=== PATIENT | male | born 1990 | race Asian ===

== ENCOUNTER 2018-10-06 09:53 | Emergency (ER) | payer SELFPAY ==
[2018-10-06] MEDS ORDERED: DEXAMETHASONE 4 MG TAB PO ONE (10:32)
--- NOTE | 2018-10-06 10:33 | EDPHY ---
H & P Stated Complaint: ST for 5 days Time Seen by Provider: 10/06/18 10:00 HPI/ROS: CHIEF COMPLAINT: Sore throat HISTORY OF PRESENT ILLNESS: 28-year-old male with bulimia presents with a 5 day history of sore throat. Onset of sore throat 5 days ago after using a toothbrush to induce vomiting. The sore throat is moderate and persistent. No associated symptoms. h/o bulimia, infrequent self-induced vomiting recently. REVIEW OF SYSTEMS: complete 10 point ROS reviewed and is negative except for the noted elements in the HPI - Medical/Surgical History Hx Asthma: No Hx Chronic Respiratory Disease: No Hx Diabetes: No Hx Cardiac Disease: No Hx Renal Disease: No Hx Cirrhosis: No Hx Alcoholism: No Hx HIV/AIDS: No Hx Splenectomy or Spleen Trauma: No Other PMH: none - Social History Smoking Status: Never smoked - Physical Exam Exam: General Appearance: Alert, pleasant Eyes: Pupils equal and round, no conjunctival injection ENT, Mouth: Right tonsillar swelling and exudate, mucous membranes moist Neck: Normal inspection, no adenopathy Respiratory: Lungs are clear to auscultation Cardiovascular: Regular rate and rhythm Skin: Warm and dry Psychiatric: Mood and affect normal Constitutional: Initial Vital Signs Temperature (C) 36.7 C 10/06/18 09:55 Heart Rate 65 10/06/18 09:55 Respiratory Rate 18 10/06/18 09:55 Blood Pressure 105/78 10/06/18 09:55 O2 Sat (%) 98 10/06/18 09:55 O2 Delivery Mode Room Air Allergies/Adverse Reactions: No Known Allergies Allergy (Unverified 10/06/18 09:55) Home Medications: Medication Instructions Recorded NK [No Known Home Meds] 10/06/18 Medical Decision Making ED Course/Re-evaluation: Assessment: Acute pharyngitis, most likely secondary to foreign body placement. Doubt retained FB. Rapid strep is negative. Decadron 6 mg orally given. Discussed with patient bulimia, self-managing sx, encouraged follow up with PCP and therapist. - Data Points Laboratory Results: 10/06/18 10/06/18 Unknown 10:05 Group A Strep Screen NEGATIVE (NEGATIVE) Group A Strep DNA NEGATIVE (NEGATIVE) Medications Given: Discontinued Medications Dexamethasone (Decadron) 6 mg PO EDNOW ONE Stop: 04/08/19 10:33 Last Admin: 10/06/18 10:36 Dose: 6 mg Departure - Departure Disposition: Home, Routine, Self-Care Clinical Impression: Acute pharyngitis Qualifiers: Pharyngitis/tonsillitis etiology: unspecified etiology Qualified Code(s): J02.9 - Acute pharyngitis, unspecified Condition: Good Instructions: Pharyngitis (ED) Additional Instructions: Ibuprofen 600 mg 3 times daily while the pain persists. Call in 2 days for throat culture results. Return for worsening symptoms or any concerns. Referrals: Neela Oropeza MD [Medical Doctor] - As per Instructions
[2018-10-06 10:39] VITALS: BP 111/66
== END 2018-10-06 10:49 | disposition home or self-care (01) ==
DX: J02.9 Acute pharyngitis, unspecified (principal); F50.2 Bulimia nervosa